=== PATIENT | male | born 1990 | race Caucasian/White ===

== ENCOUNTER 2020-02-29 12:13 | Emergency (ER) | payer OTHER ==
[~2020-02-29] VITALS: Ht 182.9 cm; Wt 88.6 kg
[2020-02-29] MEDS ORDERED: NORCO 325 MG-7.1 TAB PO ×2 (12:44→15:00)
[2020-02-29] MEDS ORDERED: PROZAC 20MG20 MG PO (12:45)
[2020-02-29] MEDS ORDERED: EFFEXOR-XR150 MG PO (12:46)
[2020-02-29 13:16] VITALS: TEMP 99.1
[2020-02-29 14:39] LABS: STREP SCREEN NEGATIVE
[2020-02-29 15:00] VITALS: BP 131/84; PULSE 89
== END 2020-02-29 15:00 | disposition home or self-care (01) ==
LOC: COL.ER 12:13
PROVIDERS: Physician Assistant
DX: G89.18 Other acute postprocedural pain (principal); J06.9 Acute upper respiratory infection, unspecified; F17.220 Nicotine dependence, chewing tobacco, uncomplicated; Z20.828 Contact with and (suspected) exposure to other viral communicable diseases; Z96.653 Presence of artificial knee joint, bilateral